=== PATIENT | female | born 1965 | race Caucasian/White ===

== ENCOUNTER 2024-03-31 14:10 | Outpatient (AMB) | payer OTHER, SELFPAY ==
--- NOTE | 2024-03-31 14:21 | MHC.PC.OV ---
Vital Signs 03/31/24 14:35 Height 5 ft 4.72 in Weight 193 lb 4 oz BMI 32.4 BP 116/74 Blood Pressure Location Lt brachial Position Sitting Respiration 14 Pulse 72 Pulse Source Pulse Oximeter Temp 98.1 F Temp Source Oral Pulse Oximetry (%) 97 Oxygen Delivery Method Room Air Intake Visit Reasons: Transfer Care from [facility] Intake Note: New patient visit. Tried taking lisinopril but it made her cough. [facility] sent her Amlodipine 5 mg pt only took half a pill out of caution. Toll Gate Keeper Required: No Allergies lisinopril Allergy (Intermediate, Verified 03/31/24 14:30) Cough Medication List - Last Reconciled 03/31/24 by Natalie Garay PA-C atorvastatin 40 mg PO DAILY chlorthalidone 25 mg PO DAILY Tobacco use date assessed: 03/31/24 Dental Screening Dental Screen Date: 03/31/24 Did you have a dental visit in the last 12 months?: Yes Did you have a dental problem in the last 6 months where you did not have access to dental care?: No Was dental information given to patient?: Patient has dentist HPI Transfer Care from [facility] HPI Details Patient is a 58-year-old female who presents today to [facility]. She is transferring from [facility]. She last saw Dr. Rodriguez on 07/30/2023. She has a history of hypertension, hyperlipidemia and tobacco use. CV: Blood pressure today in the office is 116/74. She is on chlorthalidone 25 mg and amlodipine 2.5 mg. She is on atorvastatin 40 mg for her cholesterol. -lisinopril caused a cough Mammogram: UTD in 2023, scheduled for 09/03/24 Pap: UTD, normal in 2021 Colonoscopy: Due this year former smoker- quit when 19 yeras ago Follows with [facility] for skin check [facility] Medical History (Updated 03/31/24 @ 15:00 by Natalie Garay PA-C) Tobacco dependency Obesity, Class I, BMI 30-34.9 HTN (hypertension) Hyperlipidemia Surgical History (Updated 03/31/24 @ 14:23 by Cherie Ozuna CMA) Hx of tonsillectomy History of surgical removal of pilonidal cyst H/O colonoscopy Family History (Updated 03/31/24 @ 14:24 by Cherie Ozuna CMA) Mother HTN (hypertension) Lung cancer Vertigo Father Heart attack Maternal Grandmother Breast cancer Social History (Updated 03/31/24 @ 14:34 by Cherie Ozuna CMA) Housing: House (2 Family home) Patient Tobacco Use Status: Former Tobacco user Cigarette Packs Per Day: 1.5 Years Smoked: 30 Packs Per Year: 45 e-Cigarette/Vaping Use: Never Used Second Hand Smoke Exposure: Yes (past) Use of substances other than those prescribed or required for medical reasons: Yes Substance Use Type: Marijuana service: Yes Current occupational status: employed Current occupation: advanced manager Current occupational exposures/hazards: No Cognitive needs: No Hearing needs: No Vision needs: Yes (glasses) Questionnaire PHQ-9 Over the last 2 weeks, how often have you been bothered by any of the following problems? 1. Little interest or pleasure in doing things: not at all 2. Feeling down, depressed, or hopeless: not at all 3. Trouble falling or staying asleep, or sleeping too much: several days 4. Feeling tired or having little energy: not at all 5. Poor appetite or overeating: not at all 6. Feeling bad about yourself - or that you are a failure or have let yourself or your family down: not at all 7. Trouble concentrating on things, such as reading the newspaper or watching television: not at all 8. Moving or speaking so slowly that other people could have noticed. Or the opposite - being so fidgety or restless that you have been moving around a lot more than usual: not at all 9. Thoughts that you would be better off or of hurting yourself in some way: not at all Total score: 1 Depression Screening Interpretation: Negative Depression Screening Done: Yes 97021 - PHQ-9 Billing: Yes Source: Developed by Drs. Stephen Russo, Josefina Danielle, Jeison Nicole and colleagues, with an educational yohana from [employer]. Thrive Questionnaire Date Thrive assessed: 03/31/24 I am a: Patient What is your living situation today?: I have a steady place to live Within the past 12 months, did the food you bought not last and you didn't have the money to get more?: Never true Within the past 12 months, did you worry whether your food would run out before you got money to buy more?: Never true Do you have trouble paying for medicines?: No Do you have trouble getting transportation to medical appointments?: No Do you have trouble paying your heating and electricity bill?: No Do you have trouble taking care of your child, family member or friend?: No Do you have trouble with day-to-day activities such as bathing, preparing meals, shopping, managing finances, etc.?: No Are you currently unemployed and looking for a job?: No Are you interested in more education?: No Please select the resources that you would like help with: None Currently or been in a relationship where the following occur: No concerns reported THRIVE Score: 0 AUDIT C Alcohol Use Questionnaire (AUDIT-C) 1. How often do you have a drink containing alcohol?: 4 or more times a week 2. How many drinks containing alcohol do you have on a typical day when you are drinking?: 1 or 2 3. How often do you have six or more drinks on one occasion?: Monthly Total Score: 6 Score Reviewed/Action Taken: Yes XANDER-7 AMB Questionnaire XANDER-7 Date XANDER - 7 assessed: 03/31/24 Feeling nervous, anxious, or on edge: 0 = Not at all Not being able to stop or control worryin = Not at all Worrying too much about different things: 0 = Not at all Trouble relaxin = Not at all Being so restless that it is hard to sit still: 0 = Not at all Becoming easily annoyed or irritable: 0 = Not at all Feeling afraid as if something awful might happen: 0 = Not at all Total XANDER-7 score (0-4 normal; 5-9 mild; 10-14 moderate; 15-21 severe): 0 Source: Developed by Drs. Stephen Russo, Josefina Danielle, Jeison Nicole and colleagues, with an educational yohana from [employer]. XANDER-7 Assessment Billing XANDER-7 Assessment Tool: XANDER-7 Assessment 07771 Physical exam (Primary Care) Vital Signs: Last Vital Signs Temp 98.1 F 03/31/24 14:35 Pulse 72 03/31/24 14:35 Resp 14 03/31/24 14:35 BP 116/74 03/31/24 14:35 Pulse Ox 97 03/31/24 14:35 Oxygen Delivery Method Room Air 03/31/24 14:35 BMI result Body Mass Index 32.4 Tobacco/Smoking Status: Tobacco use Status Tobacco use date assessed 03/31/24 03/31/24 14:39 Patient Tobacco Use Status Former Tobacco user 03/31/24 14:39 e-Cigarette/Vaping Use Never Used 03/31/24 14:39 PHQ-9: PHQ-9 Score PHQ-9: Total score 1 03/31/24 14:52 Depression Screening Interpretation: Negative Thrive Assessment: Date of Thrive Assessment Date Thrive assessed 03/31/24 03/31/24 14:42 Currently or been in a relationship where the following occur: No concerns reported Const Orientation/consciousness: patient oriented x3 HENMT Ears: hearing grossly normal bilaterally Neck Thyroid: Thyroid normal Lymphatic: no lymphadenopathy noted Resp Auscultation: clear to auscultation bilaterally Cardio Rate: regular rate Rhythm: regular rhythm Heart sounds: S1 normal heart sound present and S2 normal heart sound present GI Inspection: Yes normal to inspection Palpation (GI): Soft to palpation and Other GI palpation findings present (nontender, no cva tenderness) Auscultation: normoactive bowel sounds Rectal Exam - Female: deferred Skin General skin exam: no rashes or lesions noted Neuro General: patient oriented x3, gait normal and no focal motor deficits Assessment and Plan Assessment & Plan (1) Hyperlipidemia: Code(s): E78.5 - Hyperlipidemia, unspecified Qualifiers: Hyperlipidemia type: mixed hyperlipidemia Qualified Code(s): E78.2 - Mixed hyperlipidemia Plan: will check lfts and lipids. refilled lipitor (2) HTN (hypertension): Code(s): I10 - Essential (primary) hypertension Qualifiers: Hypertension type: primary hypertension Qualified Code(s): I10 - Essential (primary) hypertension Plan: bp wnl today continue current regimen. Labs ordered. Medications refilled Plan Bone density ordered. Colonoscopy referral placed. Orders: Orders Complete Blood Count Auto Diff Today E78.5 - Hyperlipidemia, unspecified, I10 - Essential (primary) hypertension Lipid Panel Today E78.5 - Hyperlipidemia, unspecified, I10 - Essential (primary) hypertension TSH reflex Free T4 Today E78.5 - Hyperlipidemia, unspecified, I10 - Essential (primary) hypertension XR DEXA axial skeleton Today Z78.0 - Asymptomatic menopausal state Comprehensive [place]. Panel Fast Today E78.5 - Hyperlipidemia, unspecified, I10 - Essential (primary) hypertension Referrals Open Access Screening Colonoscopy Referral Z12.11 - Encounter for screening for malignant neoplasm of colon, Z12.12 - Encounter for screening for malignant neoplasm of rectum Medications: New amlodipine 2.5 mg PO DAILY 30 tabs 11RF atorvastatin 40 mg PO DAILY 30 tabs 11RF Refilled chlorthalidone 25 mg PO DAILY 30 tabs 11RF Coding Level of Care Code New Pt Level 3 (60348) Complex EM visit Add On G2211 Diagnoses Mixed hyperlipidemia E78.2 Hyperlipidemia type: mixed hyperlipidemia Primary hypertension I10 Hypertension type: primary hypertension Additional Codes XANDER-7 Assessment Billing - XANDER-7 Assessment Tool: XANDER-7 Assessment 44827 ([id number])
[2024-03-31 14:35] VITALS: BP 116/74; PULSE 72; RESP 14; TEMP 36.7; O2SAT 97; BMI 32.4
== END 2024-03-31 15:04 | disposition home or self-care (01) ==
PROVIDERS: PCP Internal Medicine; Visit Provider Physician Assistant
DX: E78.2 Mixed hyperlipidemia (principal); I10 Essential (primary) hypertension
CPT/HCPCS: 99203

== ENCOUNTER 2024-05-05 12:29 | Outpatient (REF) | payer OTHER, SELFPAY ==
--- NOTE | ~2024-05-05 | MM_ITS ---
EXAMINATION: BONE DENSITOMETRY CLINICAL INDICATION: Menopause. COMPARISON: This is the patient's baseline examination. TECHNIQUE: Using a Readz DXA System (software version: 13.1) manufactured by [employer], dual-energy x-ray absorptiometry was performed of the lumbar spine and left hip. The images are of good technical quality. Summary results are attached. FINDINGS: LEFT FEMUR, NECK: BMD 0.933 g/cm2, Z-score 0.1, T-score -0.8, normal. LEFT FEMUR, TOTAL: BMD 1.017 g/cm2, Z-score 0.5, T-score 0.1, normal. AP SPINE L1-L4: BMD 0.996 g/cm2, Z-score 0.9, T-score -1.4, osteopenia. IDENTIFIED RISK FACTORS: Menopause. HISTORY OF FRACTURE: None listed. MEDICATIONS: Vitamin D. MM/XR DEXA axial skeleton IMPRESSION: 1. DIAGNOSIS: Osteopenia based on the lowest T-score value of -1.4 in the lumbar spine applying World Health Organization criteria. 2. 10-YEAR FRACTURE RISK PREDICTION, FRAX: Major osteoporotic fracture (clinical spine, forearm, hip or shoulder) 6.4%. Hip fracture 0.3%. 3. Treatment Recommendations: NOF guidelines recommend consideration for treatment in postmenopausal women and men age 50 and older presenting with the following: -A hip or vertebral (clinical or morphometric) fracture. -T-score less than or equal to -2.5 at the femoral neck or spine after appropriate evaluation to exclude secondary causes. -Low bone mass at the hip or spine and a 10-year fracture probability by FRAX of greater than or equal to 3% for hip fracture or greater than or equal to 20% for major osteoporotic fracture based on the [place] adapted WHO algorithm. 4. Other Recommendations: All treatment decisions require clinical judgment and consideration of individual patient factors, including patient preferences, comorbidities, previous drug use, risk factors not captured in the FRAX model (e.g. frailty, falls, vitamin D deficiency, increased bone turnover, interval significant decline in bone density) and possible under or overestimation of fracture risk by FRAX. Additional medical evaluation for secondary cause of low bone mineral density may be appropriate. FUTURE SCAN RECOMMENDATION: People with diagnosed cases of osteoporosis or at high risk for fracture should have regular bone mineral density tests. For patients eligible for Medicare, routine testing is allowed once every 2 years. The testing frequency can be increased to one year for patients who have rapidly progressing disease, those who are receiving or discontinuing medical therapy to restore bone mass, or have additional risk factors. Electronically signed by: Gregoria Mccullough MD 05/18/2024 08:34 AM EDT
== END 2024-05-05 12:30 | disposition home or self-care (01) ==
LOC: HO.MAMMO 12:29
PROVIDERS: PCP Internal Medicine; Visit Provider Internal Medicine
DX: Z13.820 Encounter for screening for osteoporosis (principal); Z78.0 Asymptomatic menopausal state
CPT/HCPCS: 77080

== ENCOUNTER → 2024-08-12 15:21 | Outpatient (AMB) | payer OTHER, SELFPAY ==
--- NOTE | 2024-08-12 15:40 | A.OFFPC_ITS ---
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 Allergies lisinopril Allergy (Intermediate, Verified 08/12/24 15:41) Cough Medication List - Last Reconciled 08/12/24 by Natalie Garay PA-C amlodipine 2.5 mg PO DAILY atorvastatin 40 mg PO DAILY chlorthalidone 25 mg PO DAILY Tobacco use date assessed: 08/12/24 Dental Screening Dental Screen Date: 03/31/24 Did you have a dental visit in the last 12 months?: No Did you have a dental problem in the last 6 months where you did not have access to dental care?: Yes Was dental information given to patient?: Patient has dentist HPI physical exam HPI Details Patient is a 58-year-old female who presents today for a physical exam. She has a history of hypertension, hyperlipidemia and tobacco use. CV: Blood pressure today in the office is 116/74. She is on chlorthalidone 25 mg and amlodipine 2.5 mg. She is on atorvastatin 40 mg for her cholesterol. -lisinopril caused a cough HEENT: Recently has been dealing with a cracked back right tooth that needs a root canal or to be extracted. She states that it is infected again. She saw her dentist at the beginning of July and was given amoxicillin which was somewhat helpful but the symptoms returned. She states it has been very hard to get in with an oral surgeon prior to the holidays. She states that she has been waiting to hear from her dentist but the office was closed for the last 2 weeks. She has an appointment scheduled with an oral surgeon on 08/18. No fevers or chills. Mammogram: UTD in 2023, scheduled for 09/03/24 Pap: UTD, normal in 2021 dexa: UTD- osteopenia 2023 Colonoscopy: Due- was referred former smoker- quit when 19 yeras ago Follows with [facility] for skin check [facility] Medical History (Updated 08/12/24 @ 16:13 by Natalie Garay, PA-C) Tobacco dependency Obesity, Class I, BMI 30-34.9 HTN (hypertension) Hyperlipidemia Surgical History (Updated 03/31/24 @ 14:23 by Cherie Ozuna CMA) Hx of tonsillectomy History of surgical removal of pilonidal cyst H/O colonoscopy Family History (Updated 03/31/24 @ 14:24 by Cherie Ozuna CMA) Mother HTN (hypertension) Lung cancer Vertigo Father Heart attack Maternal Grandmother Breast cancer Social History (Updated 03/31/24 @ 14:34 by Cherie Ozuna CMA) Housing: House (2 Family home) Alcohol intake: current Patient Tobacco Use Status: Former Tobacco user Cigarette Packs Per Day: 1.5 Years Smoked: 30 e-Cigarette/Vaping Use: Never Used Second Hand Smoke Exposure: Yes (past) Substance Use Type: Marijuana service: Yes Current occupational status: employed Current occupation: project construction assistant manager Current occupational exposures/hazards: No Cognitive needs: No Hearing needs: No Vision needs: Yes (glasses) Questionnaire PHQ-9 Over the last 2 weeks, how often have you been bothered by any of the following problems? 1. Little interest or pleasure in doing things: not at all 2. Feeling down, depressed, or hopeless: not at all 3. Trouble falling or staying asleep, or sleeping too much: not at all 4. Feeling tired or having little energy: not at all 5. Poor appetite or overeating: not at all 6. Feeling bad about yourself - or that you are a failure or have let yourself or your family down: not at all 7. Trouble concentrating on things, such as reading the newspaper or watching television: not at all 8. Moving or speaking so slowly that other people could have noticed. Or the opposite - being so fidgety or restless that you have been moving around a lot more than usual: not at all 9. Thoughts that you would be better off or of hurting yourself in some way: not at all Total score: 0 Depression Screening Interpretation: Negative Depression Screening Done: Yes 09215 - PHQ-9 Billing: Yes Source: Developed by Drs. Stephen Russo, Josefina Danielle, Jeison Nicole and colleagues, with an educational yohana from [employer]. Thrive Questionnaire Date Thrive assessed: 08/05/24 I am a: Patient What is your living situation today?: I have a steady place to live Within the past 12 months, did the food you bought not last and you didn't have the money to get more?: Never true Within the past 12 months, did you worry whether your food would run out before you got money to buy more?: Never true Do you have trouble paying for medicines?: No Do you have trouble getting transportation to medical appointments?: No Do you have trouble paying your heating and electricity bill?: No Do you have trouble taking care of your child, family member or friend?: No Do you have trouble with day-to-day activities such as bathing, preparing meals, shopping, managing finances, etc.?: No Are you currently unemployed and looking for a job?: No Are you interested in more education?: No Please select the resources that you would like help with: None Currently or been in a relationship where the following occur: No concerns reported THRIVE Score: 0 AUDIT C Alcohol Use Questionnaire (AUDIT-C) 1. How often do you have a drink containing alcohol?: 4 or more times a week 2. How many drinks containing alcohol do you have on a typical day when you are drinking?: 1 or 2 3. How often do you have six or more drinks on one occasion?: Less than monthly Total Score: 5 Score Reviewed/Action Taken: Yes XANDER-7 AMB Questionnaire XANDER-7 Date XANDER - 7 assessed: 08/12/24 Feeling nervous, anxious, or on edge: 0 = Not at all Not being able to stop or control worryin = Not at all Worrying too much about different things: 0 = Not at all Trouble relaxin = Not at all Being so restless that it is hard to sit still: 0 = Not at all Becoming easily annoyed or irritable: 0 = Not at all Feeling afraid as if something awful might happen: 0 = Not at all Total XANDER-7 score (0-4 normal; 5-9 mild; 10-14 moderate; 15-21 severe): 0 Source: Developed by Drs. Stephen Russo, Josefina Danielle, Jeison Nicole and colleagues, with an educational yohana from [employer]. XANDER-7 Assessment Billing XANDER-7 Assessment Tool: XANDER-7 Assessment 36450 Physical exam (Primary Care) Vital Signs: Last Vital Signs Pulse 81 08/12/24 15:42 BP 152/84 H 08/12/24 15:42 Pulse Ox 99 08/12/24 15:42 Oxygen Delivery Method Room Air 08/12/24 15:42 BMI result Body Mass Index 32.4 Tobacco/Smoking Status: Tobacco use Status Tobacco use date assessed 08/12/24 08/12/24 15:43 Patient Tobacco Use Status Former Tobacco user 08/12/24 15:43 e-Cigarette/Vaping Use Never Used 08/12/24 15:43 PHQ-9: PHQ-9 Score PHQ-9: Total score 0 08/12/24 15:43 Depression Screening Interpretation: Negative Thrive Assessment: Date of Thrive Assessment Date Thrive assessed 08/05/24 08/12/24 15:43 Currently or been in a relationship where the following occur: No concerns reported Const Orientation/consciousness: patient oriented x3 HENMT Ears: hearing grossly normal bilaterally and TM's normal bilaterally General nose exam: No nasal polyps present Face and sinus: Yes sinuses nontender Mouth: Normal oral and palatal mucosa present Teeth and gingiva: caries Eyes Pupils: Equal, round and reactive pupils present EOM: EOMs intact bilaterally Neck Neck: Yes full ROM and Yes no lymphadenopathy Thyroid: Thyroid normal Chest Chest palpation & inspection: normal inspection of the chest Resp Auscultation: clear to auscultation bilaterally Cardio Rate: regular rate Rhythm: regular rhythm Heart sounds: S1 normal heart sound present and S2 normal heart sound present Peripheral pulses: Peripheral pulses 2+ throughout GI Other: Soft, nontender Auscultation: normal bowel sounds Rectal Exam - Female: deferred General: Yes no CVA tenderness Back/Spine/Pelvis Other: Nontender Back: no CVA tenderness Skin General skin exam: no rashes or lesions noted Neuro General: patient oriented x3, gait normal, CN's II-XI intact bilaterally and deep tendon reflexes 2+ bilaterally Cranial nerves: Yes Equal, round and reactive pupils present Motor exam (neuro): 5/5 motor strength present throughout Sensory Exam: double simultaneous stimulation for sensation normal Coordination: [id number] test normal and Romberg test negative Extrem General: Yes normal to inspection and Yes full ROM Psych Affect: normal affect Attitude: cooperative Thought process: Normal thought process present Thought content: Normal thought content present Insight: Good insight present (Psych) Judgement: Good judgement present (Psych) Coding Level of Care Code Est Pt Prev Care 40-64y(29380) Diagnoses Routine general medical examination at a health care facility Z00.00 Primary hypertension I10 Hypertension type: primary hypertension Mixed hyperlipidemia E78.2 Hyperlipidemia type: mixed hyperlipidemia Dental infection K04.7 Additional Codes PHQ-9 - 75444 - PHQ-9 Billing: Yes ([id number]) XANDER-7 Assessment Billing - XANDER-7 Assessment Tool: XANDER-7 Assessment 55134 ([id number]) Assessment & Plan Assessment & Plan (1) Routine general medical examination at a health care facility: Code(s): Z00.00 - Encounter for general adult medical examination without abnormal findings Plan: Health maintenance reviewed. Reminded patient to complete labs. She never heard from GI since March when she had the open access colonoscopy ordered. Referral today was placed. Advised to let me know if she is not hear anything (2) HTN (hypertension): Code(s): I10 - Essential (primary) hypertension Category: Medical Qualifiers: Hypertension type: primary hypertension Qualified Code(s): I10 - Essential (primary) hypertension Plan: WNL. Continue current regimen (3) Hyperlipidemia: Code(s): E78.5 - Hyperlipidemia, unspecified Category: Medical Qualifiers: Hyperlipidemia type: mixed hyperlipidemia Qualified Code(s): E78.2 - Mixed hyperlipidemia Plan: We will check lipids and LFTs (4) Dental infection: Code(s): K04.7 - Periapical abscess without sinus Category: Medical Plan: Amoxicillin ordered for her. She has an appointment on the 8th. Advised to follow up sooner should anything worsen or change. Encouraged her to take a probiotic. Orders: Referrals Gastroenterology Referral Z12.11 - Encounter for screening for malignant neoplasm of colon Medications: New amoxicillin 875 mg PO BID 20 tabs 0RF
[2024-08-12 15:42] VITALS: BP 152/84; PULSE 81; O2SAT 99; BMI 32.4
[2024-08-12 15:51] VITALS: BP 116/82
== END ==
PROVIDERS: PCP Internal Medicine; Visit Provider Physician Assistant
DX: Z00.00 Encounter for general adult medical examination without abnormal findings (principal); I10 Essential (primary) hypertension; E78.2 Mixed hyperlipidemia; K04.7 Periapical abscess without sinus

== ENCOUNTER → 2024-08-12 15:21 | Outpatient (BNVA) | payer OTHER, SELFPAY | PROVIDERS: PCP Internal Medicine; Visit Provider Physician Assistant | DX: Z00.00 Encounter for general adult medical examination without abnormal findings (principal); I10 Essential (primary) hypertension; E78.2 Mixed hyperlipidemia; K04.7 Periapical abscess without sinus | CPT/HCPCS: 96127 ==

== ENCOUNTER 2024-08-19 08:32 | Outpatient (REF) | payer OTHER, SELFPAY ==
[2024-08-19 11:32] LABS: MANUAL DIFF FLAG NO
[2024-08-19 11:33] LABS: Basophils Percent Auto 0.7 % (0-2); Eosinophils Absolute Auto 0.2 X10*3/uL (0.0-0.4); Eosinophils Percent Auto 2.5 % (0-4); Hematocrit 38.9 % (37.0-47.0); Hemoglobin 13.6 g/dl (12.0-16.0); Imm Gran Abs Auto 0.04 X10*3/uL (0.00-0.03); Imm Gran Pct Auto 0.7 % (0.0-0.4); Lymphocytes Percent Auto 32.8 % (20-40); Mean Corpuscular Hemoglobin 32.4 pg (27.0-33.0); Mean Corpuscular Volume 92.6 fL (80.0-98.0); Mean Platelet Volume 8.8 fL (9.4-12.3); Monocytes Absolute Auto 0.5 X10*3/uL (0.1-1.2); Monocytes Percent Auto 7.5 % (2-11); Neutrophils Absolute Auto 3.4 x10*3/uL (2.0-8.3); Neutrophils Percent Auto 55.8 % (45-73); Platelet Count 296 X10*3/uL (160-400); Red Cell Distribution Width 12.8 % (11.0-16.0)
[2024-08-19 11:56] LABS: Alanine Aminotransferase 52 U/L (0-31); Albumin Level 4.5 g/dL (3.5-5.0); Anion Gap 11 (12-20); Aspartate Amino Transferase 38 U/L (5-31); Bilirubin Total 0.7 mg/dL (0.0-1.0); Blood Urea Nitrogen 11 mg/dL (9-16); Calcium 9.6 mg/dL (8.4-10.2); Carbon Dioxide 31 mmol/L (22-29); Chloride 102 mmol/L (96-108); Cholesterol 183 mg/dL (<200); Estimated Glomerular Filt Rate > 60; Glucose Fasting 98 mg/dL (60-99); HDL Cholesterol 83 mg/dL (>40); LDL Cholesterol Calculated 83 mg/dL (<100); Potassium 3.4 mmol/L (3.3-5.1); Sodium 141 mmol/L (135-145); Total Protein 7.3 g/dL (6.5-8.0); Triglycerides 88 mg/dL (<150)
[2024-08-19 12:08] LABS: TSH reflex Free T4 2.08 uIU/mL (0.32-4.0)
[2024-08-19 12:28] LABS: Alkaline Phosphatase 79 U/L (39-117)
== END 2024-08-19 08:33 | disposition home or self-care (01) ==
LOC: HO.WFDLDS 08:32
PROVIDERS: Visit Provider Physician Assistant
DX: I10 Essential (primary) hypertension (principal); E78.5 Hyperlipidemia, unspecified
CPT/HCPCS: 36415; 80053; 80061; 84443; 85025

== ENCOUNTER 2025-01-19 14:50 | Outpatient (REF) | payer OTHER, SELFPAY | END 2025-01-19 14:51 | disposition home or self-care (01) | LOC: HO.LNP 14:50 | PROVIDERS: PCP Physician Assistant; Visit Provider Physician Assistant | DX: R79.89 Other specified abnormal findings of blood chemistry (principal); E78.2 Mixed hyperlipidemia; I10 Essential (primary) hypertension ==

== ENCOUNTER 2025-01-19 14:50 | Outpatient (AMB) | payer OTHER, SELFPAY ==
--- NOTE | 2025-01-19 15:05 | MHC.PC.OV ---
Vital Signs 01/19/25 15:06 01/19/25 15:09 Height 5 ft 4.72 in BP 144/76 H 134/80 Blood Pressure Location Rt brachial Rt brachial Position Sitting Respiration 14 Pulse 64 Pulse Source Pulse Oximeter Temp 98.1 F Temp Source Oral Pulse Oximetry (%) 97 Oxygen Delivery Method Room Air Intake Visit Reasons: bp Allergies lisinopril Allergy (Intermediate, Verified 08/12/24 15:41) Cough Medication List - Last Reconciled 01/19/25 by Natalie Garay PA-C amlodipine 2.5 mg PO DAILY atorvastatin 40 mg PO DAILY chlorthalidone 25 mg PO DAILY Tobacco use date assessed: 08/12/24 Dental Screening Dental Screen Date: 03/31/24 HPI bp HPI Details Patient is a 59-year-old female who presents today for a f/u. She has a history of hypertension, hyperlipidemia and tobacco use. CV: Blood pressure today in the office is 134/80. She is on chlorthalidone 25 mg and amlodipine 2.5 mg. She is on atorvastatin 40 mg for her cholesterol. -lisinopril caused a cough GI: Last labs showed elevated LFTs. She states that she forgot to get these rechecked. The liver tests were also completed shortly after/around the time of a dental infection. Mammogram: UTD 09/04- dominick Pap: UTD, normal in 2021 dexa: UTD- osteopenia 07/2024 Colonoscopy: booked 02/18/25 former smoker- quit when 19 years ago Follows with [facility] check [facility] Medical History (Updated 08/27/24 @ 13:42 by Natalie Garay PA-C) Tobacco dependency Obesity, Class I, BMI 30-34.9 HTN (hypertension) Hyperlipidemia Surgical History Hx of tonsillectomy History of surgical removal of pilonidal cyst H/O colonoscopy Family History Mother HTN (hypertension) Lung cancer Vertigo Father Heart attack Maternal Grandmother Breast cancer Social History (Updated 01/19/25 @ 15:42 by Cherie Ozuna CMA) Housing: House (2 Family home) Alcohol intake: current Patient Tobacco Use Status: Former Tobacco user Cigarette Packs Per Day: 1.5 Years Smoked: 30 e-Cigarette/Vaping Use: Never Used Second Hand Smoke Exposure: Yes (past) Substance Use Type: Marijuana service: Yes Current occupational status: employed Current occupation: logistics program manager Current occupational exposures/hazards: No Cognitive needs: No Hearing needs: No Vision needs: Yes (glasses) Questionnaire Thrive Questionnaire Date Thrive assessed: 08/12/24 I am a: Patient What is your living situation today?: I have a steady place to live Within the past 12 months, did the food you bought not last and you didn't have the money to get more?: Never true Within the past 12 months, did you worry whether your food would run out before you got money to buy more?: Never true Do you have trouble paying for medicines?: No Do you have trouble getting transportation to medical appointments?: No Do you have trouble paying your heating and electricity bill?: No Do you have trouble taking care of your child, family member or friend?: No Do you have trouble with day-to-day activities such as bathing, preparing meals, shopping, managing finances, etc.?: No Are you currently unemployed and looking for a job?: No Are you interested in more education?: No Please select the resources that you would like help with: None Currently or been in a relationship where the following occur: No concerns reported THRIVE Score: 0 XANDER-7 AMB Questionnaire XANDER-7 Date XANDER - 7 assessed: 08/12/24 Source: Developed by Drs. Stephen Russo, Josefina Danielle, Jeison Nicole and colleagues, with an educational yohana from [employer]. Physical exam (Primary Care) Vital Signs: Last Vital Signs Temp 98.1 F 01/19/25 15:06 Pulse 64 01/19/25 15:06 Resp 14 01/19/25 15:06 BP 134/80 01/19/25 15:09 Pulse Ox 97 01/19/25 15:06 Oxygen Delivery Method Room Air 01/19/25 15:06 Tobacco/Smoking Status: Tobacco use Status Tobacco use date assessed 08/12/24 01/19/25 15:10 Patient Tobacco Use Status Former Tobacco user 01/19/25 15:10 e-Cigarette/Vaping Use Never Used 01/19/25 15:10 Thrive Assessment: Date of Thrive Assessment Date Thrive assessed 08/12/24 01/19/25 15:10 Currently or been in a relationship where the following occur: No concerns reported Const Orientation/consciousness: patient oriented x3 HENMT Ears: hearing grossly normal bilaterally Neck Thyroid: Thyroid normal Lymphatic: no lymphadenopathy noted Resp Auscultation: clear to auscultation bilaterally Cardio Rate: regular rate Rhythm: regular rhythm Heart sounds: S1 normal heart sound present and S2 normal heart sound present GI Inspection: Yes normal to inspection Palpation (GI): Soft to palpation and Other GI palpation findings present (nontender, no cva tenderness) Auscultation: normoactive bowel sounds Rectal Exam - Female: deferred Skin General skin exam: no rashes or lesions noted Neuro General: patient oriented x3, gait normal and no focal motor deficits Coding Level of Care Code Est Pt Level 4 (29488) Complex EM visit Add On G2211 Diagnoses Mixed hyperlipidemia E78.2 Hyperlipidemia type: mixed hyperlipidemia Primary hypertension I10 Hypertension type: primary hypertension Elevated LFTs R79.89 Assessment & Plan Assessment & Plan (1) Hyperlipidemia: Code(s): E78.5 - Hyperlipidemia, unspecified Category: Medical Qualifiers: Hyperlipidemia type: mixed hyperlipidemia Qualified Code(s): E78.2 - Mixed hyperlipidemia Plan: Continue atorvastatin 40 mg. (2) HTN (hypertension): Code(s): I10 - Essential (primary) hypertension Category: Medical Qualifiers: Hypertension type: primary hypertension Qualified Code(s): I10 - Essential (primary) hypertension Plan: WNL. Continue current regimen (3) Elevated LFTs: Code(s): R79.89 - Other specified abnormal findings of blood chemistry Category: Medical Plan: We will follow up pending test results. Orders: Orders Basic Metabolic Panel 01/19/25 E78.2 - Mixed hyperlipidemia, I10 - Essential (primary) hypertension, R79.89 - Other specified abnormal findings of blood chemistry TSH reflex Free T4 01/19/25 E78.2 - Mixed hyperlipidemia, I10 - Essential (primary) hypertension, R79.89 - Other specified abnormal findings of blood chemistry Complete Blood Count Auto Diff 01/19/25 E78.2 - Mixed hyperlipidemia, I10 - Essential (primary) hypertension, R79.89 - Other specified abnormal findings of blood chemistry Medications: New fluticasone propionate 50 mcg/actuation (Flonase Allergy Relief) administer into each nostril 2 sprays intranasal DAILY 16 grams 0RF
[2025-01-19 15:06] VITALS: BP 144/76; PULSE 64; RESP 14; TEMP 36.7; O2SAT 97
[2025-01-19 15:09] VITALS: BP 134/80
--- OUTSIDE RECORDS SUMMARY | 2025-01-19 17:02 | XMS_ITS | Clinical Summary ---
Author Organization [address] Address [address] [place] [phone] Phone Care Team Providers Care Mems Process Engineer Name Role Phone Maryjane Rodriguez MD Primary Care Provider [phone] Surgical History Surgery Date Site/Laterality Comments OTHER SURGICAL HISTORY 1985 PROCEDURE: [place] EXCISION PILONIDAL CYST/SINUS COMPLICATED COLONOSCOPY 10/13/2015 PROCEDURE: [...] Labor Labor/2nd/3rd Weight Sex Type Anes PTL Betty A1 A5 Name Clin Term Plan of [...] is recommended in 1 year. Mammo Location: [facility], [address] [place] [address], [facility], . -------- FINAL REPORT -------- Dictated By: Aby Johnson Dictated Date: 09/03/2024 17:32 ET Assigned Physician: Aby Johnson Reviewed and Electronically Signed By: Aby Johnson Signed Date: 09/03/2024 17:35 ET Workstation ID: [id number] Transcribed By: Self Edit Transcribed Date: 09/03/2024 [...] is recommended in 1 year. Mammo Location: [facility], [address] [place] [address], [id number], . -------- FINAL REPORT -------- Dictated By: Aby Johnson Dictated Date: 09/03/2024 17:32 ET Assigned Physician: Aby Johnson Reviewed and Electronically Signed By: Aby Johnson Signed Date: 09/03/2024 17:35 ET Workstation ID: [id number] Transcribed By: Self Edit Transcribed Date: 09/03/2024 17:32 ET Maryjane Rodriguez MD IMG BI PROCEDURES Final Result from Last 3 Months or Most Recently Relevant to Health Maintenance Insurance [facility] Care Teams Mems Process Engineer Relationship Specialty Start Date End Date Maryjane Rodriguez MD PCP - General 09/03/24
== END 2025-01-19 15:37 | disposition home or self-care (01) ==
LOC: HO.HMCFM 14:51
PROVIDERS: PCP Physician Assistant; Visit Provider Physician Assistant
DX: E78.2 Mixed hyperlipidemia (principal); I10 Essential (primary) hypertension; R79.89 Other specified abnormal findings of blood chemistry

== ENCOUNTER 2025-01-19 15:38 | Outpatient (REF) | payer OTHER, SELFPAY ==
[2025-01-19 17:47] LABS: MANUAL DIFF FLAG NO
[2025-01-19 18:30] LABS: Basophils Absolute Auto 0.1 X10*3/uL (0.0-0.2); Basophils Percent Auto 0.7 % (0-2); Eosinophils Absolute Auto 0.1 X10*3/uL (0.0-0.4); Eosinophils Percent Auto 1.5 % (0-4); Hematocrit 38.7 % (37.0-47.0); Hemoglobin 13.1 g/dl (12.0-16.0); Imm Gran Abs Auto 0.03 X10*3/uL (0.00-0.03); Imm Gran Pct Auto 0.4 % (0.0-0.4); Lymphocytes Absolute Auto 2.1 X10*3/uL (1.2-4.9); Lymphocytes Percent Auto 30.6 % (20-40); Mean Corpuscular HGB Conc 33.9 g/dl (31.0-35.0); Mean Corpuscular Hemoglobin 31.3 pg (27.0-33.0); Mean Corpuscular Volume 92.4 fL (80.0-98.0); Mean Platelet Volume 8.9 fL (9.4-12.3); Monocytes Absolute Auto 0.5 X10*3/uL (0.1-1.2); Monocytes Percent Auto 6.9 % (2-11); Neutrophils Percent Auto 59.9 % (45-73); Platelet Count 317 X10*3/uL (160-400); Red Blood Count 4.19 X10*6/uL (4.20-5.50); Red Cell Distribution Width 12.8 % (11.0-16.0); White Blood Count 6.7 X10*3/uL (4.8-10.8)
[2025-01-19 18:37] LABS: Alanine Aminotransferase 38 U/L (0-31); Albumin Level 4.7 g/dL (3.5-5.0); Alkaline Phosphatase 77 U/L (39-117); Anion Gap 9 (12-20); Aspartate Amino Transferase 33 U/L (5-31); Bilirubin Direct 0.2 mg/dL (0.0-0.5); Bilirubin Total 0.6 mg/dL (0.0-1.0); Blood Urea Nitrogen 15 mg/dL (9-16); Calcium 9.3 mg/dL (8.4-10.2); Carbon Dioxide 30 mmol/L (22-29); Chloride 104 mmol/L (96-108); Estimated Glomerular Filt Rate > 60; Glucose Random 87 mg/dL (60-115); Potassium 3.2 mmol/L (3.3-5.1); Sodium 140 mmol/L (135-145); Total Protein 7.2 g/dL (6.5-8.0)
[2025-01-19 18:55] LABS: TSH reflex Free T4 4.21 uIU/mL (0.32-4.0)
[2025-01-19 19:25] LABS: Free T4 (Free Thyroxine) 0.94 ng/dL (0.71-1.85)
== END 2025-01-19 15:39 | disposition home or self-care (01) ==
LOC: HO.WFDLDS 15:38
PROVIDERS: Visit Provider Physician Assistant
DX: R79.89 Other specified abnormal findings of blood chemistry (principal); E78.2 Mixed hyperlipidemia; I10 Essential (primary) hypertension
CPT/HCPCS: 36415; 80048; 80076; 84439; 84443; 85025

== ENCOUNTER 2025-02-18 08:21 | Day surgery (SDC) | payer OTHER, SELFPAY ==
--- OUTSIDE RECORDS SUMMARY | 2025-01-18 11:14 | XMS_ITS | Clinical Summary ---
Author Organization [address] Address [address] [place] [id number] Phone Care Team Providers Care Milk And Cream Grader Name Role Phone Maryjane Rodriguez MD Primary Care Provider [phone] Surgical History Surgery Date Site/Laterality Comments OTHER SURGICAL HISTORY 1985 PROCEDURE: [place] EXCISION PILONIDAL CYST/SINUS COMPLICATED COLONOSCOPY 10/13/2015 PROCEDURE: HISTORICAL COLONOSCOPY; COMMENT: polyps x 2, diverticulosis, hemorrhoids COLONOSCOPY 11/24/2015 PROCEDURE: HISTORICAL COLONOSCOPY; COMMENT: polyp x 1, also residual polyp removed. diverticulosis, ext hemorrhoid; f/u 3 yr COLONOSCOPY 01/01/2019 PROCEDURE: HISTORICAL COLONOSCOPY; COMMENT: No polyps. WISDOM TOOTH EXTRACTION PROCEDURE: HISTORICAL WISDOM TEETH EXTRACTION TONSILLECTOMY PROCEDURE: HISTORICAL TONSILLECTOMY Medical History Medical History Date Comments Overweight(278.02) 06/19/2006 DX:Overweight (278.02) Anxiety DX:Anxiety; COMM ENT: no meds Tobacco use disorder DX:Tobacco use disorder; COMMENT: quit 10/04/2018 Wheezing DX:Wheezing Family History Medical History Relation Name Comments Heart attack Father Breast cancer Maternal Grandmother unsure of age Hypertension Mother lung cancer Cervical cancer Neg Hx Colon cancer Neg Hx Ovarian cancer Neg Hx Uterine cancer Neg Hx Relation Name Status Comments Father (Age 67) Maternal Grandfather Maternal Grandmother Mother (Age 64) Paternal Grandfather Paternal Grandmother Social History Tobacco Use Types Packs/Day Years Used Date Smoking Tobacco: Former Cigarettes 0.3 35 0 09/25/1983 - 10/04/2018 Smokeless Tobacco: Never Alcohol Use Standard Drinks/Week Comments Yes 0 (1 standard drink = 0.6 oz pur e alcohol) Comments Unknown Sex and Gender Information Value Date Recorded Sex Assigned at Not on file Legal Sex Female 3:48 PM EST Gender Identity Not on file Sexual Orientation Not on file Obstetrics History Para Term AB IAB SAB Ectopic Multiple Livin g Live Births 1 08 11 1 Date Outcome GA Total Labor Labor/2nd/3rd Weight Sex Type Anes PTL Ebtty A1 A5 Name Clin Term Plan of Treatment Health Maintenance Due Date Last Done Comments Hepatitis B Vaccines (1 of 3 - 19+ 3-dose series) 1984 Cervical Cancer Screening: HPV 1986 Pneumococcal Vaccine: 50+ Years (1 of 1 - PCV) 2015 Zoster Vaccines (1 of 2) 2015 Cholesterol Screening (Lipid Panel) 07/20/2022 Colorectal Cancer Screening: Colonoscopy 07/20/2022 Depression Screening 07/20/2022 HIV Screening 07/20/2022 Hepatitis C Screening 07/20/2022 Social Influencers of Health Screening 07/20/2022 Hypertension/CHF/CAD Annual BMP Blood Test 07/21/2022 DTaP,Tdap,and Td Vaccines (3 - Td or Tdap) 02/02/2023 02/02/2013, 06/19/2006 COVID-19 Vaccine (3 - season) 2024 01/12/2021, 12/15/2020 Influenza Vaccine (Season Ended) 2025 06/07/2023, 06/15/2022, 07/26/2021, Additional history exists Breast Cancer Screening 09/03/2026 09/03/19, 08/27/2023, 08/22/2022, Additional history exists RSV Immunization Adult Patients (1 - 1-dose 75+ series) 2040 HIB Vaccines Aged Out No longer eligi ble based on patient's age to complete this topic HPV Vaccines Aged Out No longer eligi ble based on patient's age to complete this topic Hepatitis A Vaccines Aged Out No long er eligible based on patient's age to complete this topic IPV Vaccines Aged Out No longer eligi ble based on patient's age to complete this topic MMR Vaccines Aged Out No longer eligi ble based on patient's age to complete this topic Meningococcal ACWY Vaccine Aged Out N o longer eligible based on patient's age to complete this topic Meningococcal B Vaccine Aged Out No l onger eligible based on patient's age to complete this topic Pneumococcal Vaccine: Pediatrics (0 to 5 Years) and At-Risk Patients (6 to 64 Years) Aged Out No longer eligible based on patient's age to complete this topic RSV Immunization Patients Under 20 months Aged Out No longer eligible based on patient's age to complete this topic Varicella Vaccines Aged Out No longer eligible based on patient's age to complete this topic Procedures Procedure Name Priority Date/Time Associated Diagnosis Comments MG MAMMO DIGITAL SCREENING W MICHAEL BILAT Routine 09/03/2024 8:03 AM EST Encounter for screening mammogram for breast cancer from Last 3 Months or Most Recently Relevant to Health Maintenance Results * MG Mammo Digital Screening w Michael bilat (09/03/2024 8:03 AM EST) Anatomical Region Laterality Modality Breast Bilateral Mammography 09/03/2024 5:32 PM EST Impressions 09/03/2024 5:35 PM EST No mammographic evidence for malignancy. BI-RADS CATEGORY: 1 - NEGATIVE RECOMMENDATION: Screening bilateral mammogram is recommended in 1 year. Mammo Location: [facility], [address] [place] [address], [facility], . -------- FINAL REPORT -------- Dictated By: Aby Johnson Dictated Date: 09/03/2024 17:32 ET Assigned Physician: Aby Johnson Reviewed and Electronically Signed By: Aby Johnson Signed Date: 09/03/2024 17:35 ET Workstation ID: [id number] Transcribed By: Self Edit Transcribed Date: 09/03/2024 17:32 ET Narrative 09/03/2024 5:35 PM EST CLINICAL: 58 years old, Female, routine annual exam. COMPARISON: Prior mammograms, latest from 08/27/2023. ?? TECHNIQUE: Bilateral MLO and CC views were obtained digitally with 3-D mammogram (digital breast tomosynthesis). Computer-aided detection was utilized in evaluation of this exam (CAD). FINDINGS: There is no evidence of suspicious mass or architectural distortion. ??No worrisome calcifications are evident. ??There has been no significant change from prior exam(s). ?? BREAST DENSITY: B - There are scattered areas of fibroglandular density. Procedure Note Aby Johnson MD - 09/03/2024 CLINICAL: 58 years old, Female, routine annual exam. COMPARISON: Prior mammograms, latest from 08/27/2023. TECHNIQUE: Bilateral MLO and CC views were obtained digitally with 3-Dmammogram (digital breast tomosynthesis). Computer-aided detection wasutilized in evaluation of this exam (CAD). FINDINGS: There is no evidence of suspicious mass or architectural distortion. Noworrisome calcifications are evident. There has been no significantchange from prior exam(s). BREAST DENSITY: B - There are scattered areas of fibroglandular density. IMPRESSION: No mammographic evidence for malignancy. BI-RADS CATEGORY: 1 - NEGATIVE RECOMMENDATION: Screening bilateral mammogram is recommended in 1 year. Mammo Location: [facility], [address] [place] [address], [id number], . -------- FINAL REPORT -------- Dictated By: Aby Johnson Dictated Date: 09/03/2024 17:32 ET Assigned Physician: Aby Johnson Reviewed and Electronically Signed By: Aby Johnson Signed Date: 09/03/2024 17:35 ET Workstation ID: [id number] Transcribed By: Self Edit Transcribed Date: 09/03/2024 17:32 ET Maryjane Rodriguez MD IMG BI PROCEDURES Final Result from Last 3 Months or Most Recently Relevant to Health Maintenance Insurance [facility] Care Teams Milk And Cream Grader Relationship Specialty Start Date End Date Maryjane Rodriguez MD PCP - General 09/03/24
[2025-02-16 11:13] VITALS: BMI 32.4
--- NOTE | 2025-02-17 09:39 | P.CONAN_ITS ---
Documented by User: Peyton Taylor NP 02/17/25 09:39 HPI - Anesthesia Eval Consult details Narrative: 59yo F for Colonoscopy PMFSH Active Problems Active Problems: All Active Problems Hypothyroid (Acute) Elevated LFTs (Acute) Dental infection (Acute) Hyperlipidemia (Acute) HTN (hypertension) (Acute) Past Medical History Medical History Tobacco dependency Obesity, Class I, BMI 30-34.9 HTN (hypertension) Hyperlipidemia Family History Family History Mother HTN (hypertension) Lung cancer Vertigo Father Heart attack Maternal Grandmother Breast cancer Surgical History Surgical History Hx of tonsillectomy History of surgical removal of pilonidal cyst H/O colonoscopy Social History Social History Housing: House (2 Family home) Alcohol intake: current Patient Tobacco Use Status: Former Tobacco user Cigarette Packs Per Day: 1.5 Years Smoked: 30 e-Cigarette/Vaping Use: Never Used Second Hand Smoke Exposure: Yes (past) Use of substances other than those prescribed or required for medical reasons: No Substance Use Type: Marijuana Are you DNR?: No Advance Directives: No Advance Directives Information Provided: Yes Patient : No : No Poor oral hygiene: No service: Yes Current occupational status: employed Current occupation: business process manager Current occupational exposures/hazards: No Cognitive needs: No Hearing needs: No Vision needs: Yes (glasses) Meds Allergies Allergy/AdvReac Type Severity Reaction Status Date / Time lisinopril Allergy Intermediate Cough Verified 08/12/24 15:41 Exam Height,Weight and Vital Signs: Height 5 ft 4.72 in Weight 87.657 kg Assessment and Plan Assessment Anesthesia Assessment: Chart Reviewed Documented by User: Ovidio Kinney MD 02/18/25 10:25 [facility] Past Medical History Medical History Tobacco dependency Obesity, Class I, BMI 30-34.9 HTN (hypertension) Hyperlipidemia Functional capacity: independent ambulation Patient : No Family History Family History Mother HTN (hypertension) Lung cancer Vertigo Father Heart attack Maternal Grandmother Breast cancer Family history of problems with anesthesia: No Surgical History Surgical History Hx of tonsillectomy History of surgical removal of pilonidal cyst H/O colonoscopy History of Problems with Anesthesia: No Social History Social History Housing: House (2 Family home) Alcohol intake: current Patient Tobacco Use Status: Former Tobacco user Cigarette Packs Per Day: 1.5 Years Smoked: 30 e-Cigarette/Vaping Use: Never Used Second Hand Smoke Exposure: Yes (past) Use of substances other than those prescribed or required for medical reasons: No Substance Use Type: Marijuana Are you DNR?: No Advance Directives: No Advance Directives Information Provided: Yes Patient : No : No Poor oral hygiene: No service: Yes Current occupational status: employed Current occupation: business process manager Current occupational exposures/hazards: No Cognitive needs: No Hearing needs: No Vision needs: Yes (glasses) Meds Allergies Allergy/AdvReac Type Severity Reaction Status Date / Time lisinopril Allergy Intermediate Cough Verified 08/12/24 15:41 Exam Exam Date and Time: 02/18/2025 Airway TM Dist: >3cm Loose/Missing/Broken Teeth: No Heart: rrr Lungs: cta Assessment and Plan Final Anesthetic Review Family History of Problems with Anesthesia: No History of Problems with Anesthesia: No NPO: Yes ASA Class: II Final Preanesthetic Review: No Changes in Pt Med Stat, Meds/Allgs Chart Reviewed, Consent Obtained/Reviewed and Anes Risks/Benef Reviewed Patient Risk: Low Procedure Risk: Low Anesthetic Plan Anesthetic Plan: GA and MAC: Disposition: Standard PACU
[2025-02-18 09:01] VITALS: BMI 30.8
[2025-02-18 09:05] VITALS: BP 142/71; PULSE 66; RESP 16; TEMP 36.1; O2SAT 98
[2025-02-18] MEDS: Lactated Ringers 1,000 ML 100 ML IVCONT (09:16)
--- NOTE | 2025-02-18 09:25 | MHC.SHP ---
Pre-Procedural Eval Section A - 24 Hr Update-Section A only Date of Service: 02/18/25 The patient is an INPATIENT: No The patient has been examined within 24 hours of the surgical procedure. The History & Physical has been completed within 30 days and I have reviewed it.: No Section B - Complete if H&P > 30 days Chief Complaint: Surveillance for colon polyps Relevant Family History (Specify if Yes): No Relevant Social History: Tobacco Use (Former smoker) Present Medications: see Short Stay Collaborative assessment Medical History: Significant History (Tobacco dependency Obesity, Class I, BMI 30-34.9 HTN (hypertension) Hyperlipidemia) History of Previous Operations: Relevant previous surgery/procedure and date(s) (Hx of tonsillectomy History of surgical removal of pilonidal cyst H/O colonoscopy) Allergies: Allergies Allergy/AdvReac Type Severity Reaction Status Date / Time lisinopril Allergy Intermediate Cough Verified 08/12/24 15:41 Review of Systems Sugical H&P ROS: Negative: Constitution, Cardiovascular and Respiratory and Yes, Specify: Gastrointestinal (Intermittent constipation) Exam Surgical H&P Exam: Normal: Heart, Normal: Lungs, Normal: Extremities and Normal: Abdomen Plan Diagnosis/Plan: Change (Proceed with colonoscopy for follow-up of colon polyps) I have reviewed the history and physical and performed a pertinent physical examination on my patient. No changes have occurred unless specified. Time Spent With Patient Time: Total time managing care of this patient today ____ minutes.
--- NOTE | 2025-02-18 10:30 | HO.OPN-COLON ---
Colonoscopy Operative Note Operative Note Date of Service: 02/18/25 Narrative: COLONOSCOPY TILL CECUM WITH SNARE POLYPECTOMY Pre-op diagnosis: Surveillance for colon polyps Pt reports having 3 ccolonoscopies in the past at [facility] - last colon was 3.5 yrs ago. (per patient first colon 6 yrs ago, then 3 year fu colon, 3rd colonoscopy was performed 1 month after 2nd colon for fu of a polyp. Repeat colon was advised in 3 years) Post-op diagnosis:? Colon polyps, Diverticulosis, hemorrhoids Endoscopist:? Anaid Becerril MD Anesthesia:?MAC Consent: Indications for the procedure and potential complications of bleeding, perforation, reaction to medications and missed diagnosis were discussed with the patient and informed consent was obtained. Instrument: Olympus PCF H 190 L variable stiffness pediatric colonoscope Monitoring: Vital signs and clinical assessment, intermittent blood pressure monitoring, continuous EKG monitoring, Pulse oximetry and Carbon Dioxide monitoring were done throughout the procedure. Please see anesthesia flowsheet. Colon withdrawl time was 23 minutes. Procedure: The patient was placed in the left lateral decubitis position and pre-procedure medications were administered. After a digital rectal examination of the ano-rectum, the video colonoscope was inserted into the rectum and advanced through the colon to the cecum. The colonoscope was slowly withdrawn in a retrograde panoramic fashion and the colon mucosa was carefully examined including a retroflexed view of the rectum. Findings and interventions are described below. Procedure Difficulty: Colon was long and tortuous and there was some loop formation. Patient was placed in the supine position and LLQ pressure was applied to intubate the cecum Findings: Terminal Ileum: Not evaluated Cecum: Normal Ascending Colon: Normal Transverse Colon: Two 8 to 10 mm sessile polyps - removed with a cold snare Descending Colon: Moderate diverticulosis Sigmoid Colon: Severe diverticulosis with luminal narrowing Rectum: Normal Ano-rectum: Moderate internal hemorrhoids Colon preparation: Excellent, after some irrigation. [place] Bowel Preparation Scale Right colon; 3 Transverse colon: 3 Left colon; 3 (0 = Unprepared colon segment with mucosa not seen due to solid stool that cannot be cleared. 1 = Portion of mucosa of the colon segment seen, but other areas of the colon segment not well seen due to staining, residual stool and/or opaque liquid. 2 = Minor amount of residual staining, small fragments of stool and/or opaque liquid, but mucosa of colon segment seen well. 3 = Entire mucosa of colon segment seen well with no residual staining, small fragments of stool or opaque liquid) Impression and Post Procedure Diagnosis: Colonoscopy Findings: Two medium sized polyps were removed Moderate to severe diverticulosis seen in the left colon Moderate hemorrhoids on retroflexed exam. Plan: I will send a letter with biopsy results. Repeat Colonoscopy in 3-5 years if polyps are adenomatous and 10 year if polyps are hyperplastic. Above findings were reviewed with the patient and relevant handouts were given and the discharge area. BIOPSIES SHOWED: Colon, transverse, polypectomies: Fragments of tubular adenomata; negative for high-grade dysplasia or carcinoma Letter sent to the patient with biopsy results. Patient was placed on the colonoscopy recall list for repeat colonoscopy in 3 years.
[2025-02-18 11:17] VITALS: BP 127/72; PULSE 66; RESP 16; TEMP 36.5; O2SAT 96
[2025-02-18 11:32] VITALS: BP 140/82; PULSE 71; RESP 18; TEMP 36.3; O2SAT 100
== END 2025-02-18 11:56 | disposition home or self-care (01) ==
PROVIDERS: PCP Physician Assistant; Visit Provider Internal Medicine Gastroenterology
PROC: 0DJD8ZZ Inspection of Lower Intestinal Tract, Via Natural or Artificial Opening Endoscopic (ICD-10-PCS; CPT 45378; principal; 2025-02-18 10:10)
DX: Z12.11 Encounter for screening for malignant neoplasm of colon (principal); D12.3 Benign neoplasm of transverse colon; K56.699 Other intestinal obstruction unspecified as to partial versus complete obstruction; K56.2 Volvulus; K57.30 Diverticulosis of large intestine without perforation or abscess without bleeding; K64.8 Other hemorrhoids; Z86.0101 Personal history of adenomatous and serrated colon polyps; I10 Essential (primary) hypertension; E78.5 Hyperlipidemia, unspecified; Z87.891 Personal history of nicotine dependence; Z79.02 Long term (current) use of antithrombotics/antiplatelets; Z79.899 Other long term (current) drug therapy
CPT/HCPCS: 45385; 88305; J2003; J2704; J3010

== ENCOUNTER → 2025-02-18 08:21 | Outpatient (BNV) | payer OTHER, SELFPAY | PROVIDERS: PCP Physician Assistant; Visit Provider Internal Medicine Gastroenterology | DX: Z12.11 Encounter for screening for malignant neoplasm of colon (principal); Z86.0101 Personal history of adenomatous and serrated colon polyps; D12.3 Benign neoplasm of transverse colon; K57.90 Diverticulosis of intestine, part unspecified, without perforation or abscess without bleeding; K64.8 Other hemorrhoids | CPT/HCPCS: 45385 ==

== ENCOUNTER 2025-03-08 07:30 | Outpatient (REF) | payer OTHER, SELFPAY ==
--- OUTSIDE RECORDS SUMMARY | 2025-03-08 07:33 | XMS_ITS | Clinical Summary ---
Author Organization [employer] Address [address] [facility] [address] [place] [address] Care Team Providers Care Director Marketing Name Role Phone Unavailable Primary Care Provider Unavailabl e Allergies No known active allergies Medications amLODIPine (Norvasc) 5 MG tablet Take 1 tablet by mouth Once per day. 4 Active amoxicillin (Amoxil) 875 MG tablet Take 1 tablet by mouth 2 times daily. 5 Active atorvastatin (Lipitor) 40 MG tablet Take 1 tablet by mouth Once per day. 4 Active chlorthalidone (Hygroton) 25 MG tablet Take 1 tablet by mouth Once per day. 5 Active LORazepam (Ativan) 1 MG tablet TAKE 1 TABLET BY MOUTH 1 1/4 HOUR 75 MINUTES) BEFORE APPOINTMENT 4 Active ibuprofen 800 MG tablet Take 1 tablet by mouth every 8 (eight) hours if needed for pain. 4 Active Encounters Date Type Department Care Team Description 03/04/2025 Telephone [facility]ULT D[facility]AL [address] [place] [address] Alberto Hicks DMD implant referral from Last 3 Months Social History Tobacco Use Types Packs/Day Years Used Date Smoking Tobacco: Never Assessed Comments Unknown Sex and Gender Information Value Date Recorded Sex Assigned at Female 07/23/2024 11:33 AM EST Legal Sex Female 11:31 AM EST Gender Identity Female 07/23/2024 11:33 AM EST Sexual Orientation Straight 07/23/2024 11 :42 AM EST Last Filed Vital Signs Vital Sign Reading Time Taken Comments Blood Pressure 130/84 09/15/2024 11:08 AM EST Pulse 69 09/15/2024 11:08 AM EST Temperature - - Respiratory Rate - - Oxygen Saturation - - Inhaled Oxygen Concentration - - Weight - - Height - - Body Mass Index - - Plan of Treatment Health Maintenance Due Date Last Done Comments CT Colonography 1965 Colonoscopy 1965 Colorectal Cancer Screening 1965 Dental Oral Exam 1965 Dental Prophylaxis 1965 Dental X-Ray: Bitewings 1965 Depression Screening 1965 FIT DNA/Cologuard 1965 FIT 1965 FOBT 1965 HIV Screening 1965 SDOH Screening 1965 Sigmoidoscopy 1965 Disability Screening 1965 Alcohol/Substance Use Screening 1977 Tobacco Screening 1977 Hepatitis C Screening 1983 Hepatitis B Vaccines (1 of 3 - 19+ 3-dose series) 1984 Pap Smear 1986 Cervical Cancer Screening 1995 HPV/Cotest 1995 Pneumococcal Vaccine: 50+ Years (1 of 1 - PCV) 2015 Zoster Vaccines (1 of 2) 2015 DTaP/Tdap/Td Vaccines (2 - Td or Tdap) 02/02/2023 02/02/2013, 06/19/2006 COVID-19 Vaccine (3 - season) 2024 01/12/2021, 12/15/2020 Influenza Vaccine (#1) 2025 , 06/15/2022, 07/26/2021, Additional history exists Mammogram 09/03/2026 09/03/2024, 09/03/2024 Dental X-Ray: Full Mouth 08/19/2027 08/18/2024 RSV Patients and Patients Aged 60 years or older (1 - 1-dose 75+ series) 2040 HIB [...] patient's age to complete this topic Meningococcal Vaccine Aged Out No joselyn cristopher eligible based on patient's age to complete this topic RSV under 20 months Aged Out No longe r eligible based on patient's age to complete this topic Rotavirus Vaccines Aged Out No longer eligible based on patient's age to complete this topic Procedures Procedure Name Priority Date/Time Associated Diagnosis Comments PANORAMIC RADIOGRAPHIC IMAGE Routine 08/18/2024 3:15 PM EST from Last 3 Months or Most Recently Relevant to Health Maintenance Insurance [facility]
--- OUTSIDE RECORDS SUMMARY | 2025-03-08 07:33 | XMS_ITS | Clinical Summary ---
Author Organization [address] Address [address] [place] [phone] Phone Care Team Providers Care Life Skills Coordinator Volunteer Name Role Phone Maryjane Rodriguez MD Primary Care Provider [phone] Surgical History Surgery Date Site/Laterality Comments OTHER SURGICAL HISTORY 1985 PROCEDURE: [place] EXCISION PILONIDAL CYST/SINUS COMPLICATED COLONOSCOPY 10/13/2015 PROCEDURE: [...] Panel) 07/20/2022 Colorectal Cancer Screening: Colonoscopy 07/20/2022 HIV Screening 07/20/2022 Hepatitis C Screening 07/20/2022 Social Influencers of Health Screening 07/20/2022 Hypertension/CHF/CAD Annual BMP Blood Test 07/21/2022 DTaP,Tdap,and Td Vaccines (3 - Td or Tdap) 02/02/2023 02/02/2013, 06/19/2006 COVID-19 Vaccine ( - season) 2024 01/12/2021, 12/15/2020 Depression Screening 08/11/2024 Influenza Vaccine (#1) 2025 , 06/15/2022, 07/26/2021, Additional history exists Breast Cancer [...] is recommended in 1 year. Mammo Location: [facility], [address] [place] [address], [id number], . -------- FINAL REPORT -------- Dictated By: Aby Johnson Dictated Date: 09/03/2024 17:32 ET Assigned Physician: Aby Johnson Reviewed and Electronically Signed By: Aby oJhnson Signed Date: 09/03/2024 17:35 ET Workstation ID: [id number] Transcribed By: Self Edit Transcribed Date: 09/03/2024 [...] evidence of suspicious mass or architectural distortion. No worrisome calcifications are evident. There has been no significant change from prior exam(s). BREAST DENSITY: B - [...] is recommended in 1 year. Mammo Location: [facility], [address] [place] [address], [facility], . -------- FINAL REPORT -------- Dictated By: Aby Johnson Dictated Date: 09/03/2024 17:32 ET Assigned Physician: Aby Johnson Reviewed and Electronically Signed By: Aby Johnson Signed Date: 09/03/2024 17:35 ET Workstation ID: [id number] Transcribed By: Self Edit Transcribed Date: 09/03/2024 17:32 ET Maryjane Rodriguez MD IMG BI PROCEDURES Final Result from Last 3 Months or Most Recently Relevant to Health Maintenance Insurance [facility] Care Teams Life Skills Coordinator Volunteer Relationship Specialty Start Date End Date Maryjane Rodriguez MD PCP - General 09/03/24
[2025-03-08 11:59] LABS: Alanine Aminotransferase 28 U/L (0-31); Albumin Level 4.5 g/dL (3.5-5.0); Alkaline Phosphatase 76 U/L (39-117); Anion Gap 12 (12-20); Aspartate Amino Transferase 27 U/L (5-31); Blood Urea Nitrogen 10 mg/dL (9-16); Calcium 9.2 mg/dL (8.4-10.2); Carbon Dioxide 30 mmol/L (22-29); Chloride 104 mmol/L (96-108); Estimated Glomerular Filt Rate > 60; Gamma Glutamyl Transpeptidase 31 U/L (7-33); Potassium 3.5 mmol/L (3.3-5.1); Sodium 142 mmol/L (135-145); Total Protein 6.7 g/dL (6.5-8.0)
[2025-03-08 12:07] LABS: HBsAGNum1 0.31 S/CO (0.00-0.99); Hepatitis B Surface Antigen Negative (Negative); ~HepC Num1 0.10 S/CO (0.00-0.79); ~Hepatitis C Antibody Nonreactive (Nonreactive)
== END 2025-03-08 07:31 | disposition home or self-care (01) ==
LOC: HO.WFDLDS 07:30
PROVIDERS: Visit Provider Physician Assistant
DX: Z11.59 Encounter for screening for other viral diseases (principal); E87.6 Hypokalemia; E03.9 Hypothyroidism, unspecified; R94.5 Abnormal results of liver function studies; R79.89 Other specified abnormal findings of blood chemistry
CPT/HCPCS: 36415; 80048; 80076; 82977; 84443; 86803; 87340

== ENCOUNTER 2025-07-28 13:45 | Outpatient (AMB) | payer OTHER, SELFPAY ==
--- NOTE | 2025-07-28 13:50 | MHC.PC.OV ---
Vital Signs 07/28/25 13:52 Height 5 ft 6 in Weight 194 lb 4 oz BMI 31.3 BP 134/84 Blood Pressure Location Lt brachial Position Sitting Respiration 14 Pulse 88 Pulse Source Pulse Oximeter Temp 98.3 F Temp Source Oral Pulse Oximetry (%) 98 Oxygen Delivery Method Room Air Intake Visit Reasons: cpe Intake Note: Physical [employer]icon[employer] Processor Required: No Allergies lisinopril Allergy (Intermediate, Verified 07/28/25 13:50) Cough Medication List - Last Reconciled 07/28/25 by Natalie Garay PA-C amlodipine 2.5 mg PO DAILY atorvastatin 40 mg PO DAILY chlorthalidone 25 mg PO DAILY fluticasone propionate 50 mcg/actuation (Flonase Allergy Relief) 2 sprays intranasal DAILY levothyroxine (Synthroid) 25 mcg PO DAILY triamcinolone acetonide 0.025% 1 appl topical BID 10 days Tobacco use date assessed: 07/28/25 Dental Screening Dental Screen Date: 07/28/25 Did you have a dental visit in the last 12 months?: Yes Did you have a dental problem in the last 6 months where you did not have access to dental care?: No Was dental information given to patient?: Patient has dentist HPI cpe HPI Details Patient is a 59-year-old female who presents today for a f/u. She has a history of hypertension, hyperlipidemia and tobacco use. CV: Blood pressure today in the office is 134/82. She is on chlorthalidone 25 mg and amlodipine 2.5 mg. She is on atorvastatin 40 mg for her cholesterol. -lisinopril caused a cough Derm: rash of right breast x 3 weeks. She states that it is somewhat itchy but more concerning to her is that her right breast that is somewhat tender. She states that behind the nipple she notices some discomfort. She has tried hydrocortisone cream which does intermittently help the rash but then the rash returns. She denies any palpable masses or nipple drainage. She is up-to-date on her mammogram but it is due this next month. She says that she did go goal this in his concerned about laboratory breast cancer. Mammogram: UTD 09/04- dominick Pap: UTD, normal in 2021-scheduled September 2025 dexa: UTD- osteopenia 07/2024 Colonoscopy: 02/18/25 former smoker- quit when 19 years ago Follows with [facility] for skin check Due for flu shot PFSH Medical History Tobacco dependency Obesity, Class I, BMI 30-34.9 HTN (hypertension) Hyperlipidemia Surgical History Hx of tonsillectomy History of surgical removal of pilonidal cyst H/O colonoscopy Family History Mother HTN (hypertension) Lung cancer Vertigo Father Heart attack Maternal Grandmother Breast cancer Social History (Updated 07/28/25 @ 13:51 by Cherie Ozuna CMA) Housing: House (2 Family home) Alcohol intake: current Patient Tobacco Use Status: Former Tobacco user Cigarette Packs Per Day: 1.5 Years Smoked: 30 e-Cigarette/Vaping Use: Never Used Second Hand Smoke Exposure: Yes (past) Substance Use Type: Marijuana service: Yes Current occupational status: employed Current occupation: residential care facility manager Current occupational exposures/hazards: No Cognitive needs: No Hearing needs: No Vision needs: Yes (glasses) Questionnaire Thrive Questionnaire Date Thrive assessed: 08/12/24 I am a: Patient What is your living situation today?: I have a steady place to live Within the past 12 months, did the food you bought not last and you didn't have the money to get more?: Never true Within the past 12 months, did you worry whether your food would run out before you got money to buy more?: Never true Do you have trouble paying for medicines?: No Do you have trouble getting transportation to medical appointments?: No Do you have trouble paying your heating and electricity bill?: No Do you have trouble taking care of your child, family member or friend?: No Do you have trouble with day-to-day activities such as bathing, preparing meals, shopping, managing finances, etc.?: No Are you currently unemployed and looking for a job?: No Are you interested in more education?: No Please select the resources that you would like help with: None Currently or been in a relationship where the following occur: No concerns reported THRIVE Score: 0 AUDIT C Alcohol Use Questionnaire (AUDIT-C) 1. How often do you have a drink containing alcohol?: 4 or more times a week 2. How many drinks containing alcohol do you have on a typical day when you are drinking?: 1 or 2 3. How often do you have six or more drinks on one occasion?: Never Total Score: 4 XANDER-7 AMB Questionnaire XANDER-7 Date XANDER - 7 assessed: 08/12/24 Source: Developed by Drs. Stephen Russo, Josefina Danielle, Jeison Nicole and colleagues, with an educational yohana from [employer]. Physical exam (Primary Care) Vital Signs: Last Vital Signs Temp 98.3 F 07/28/25 13:52 Pulse 88 07/28/25 13:52 Resp 14 07/28/25 13:52 BP 134/84 07/28/25 13:52 Pulse Ox 98 07/28/25 13:52 Oxygen Delivery Method Room Air 07/28/25 13:52 BMI result Body Mass Index 31.3 Tobacco/Smoking Status: Tobacco use Status Tobacco use date assessed 07/28/25 07/28/25 13:54 Patient Tobacco Use Status Former Tobacco user 07/28/25 13:54 e-Cigarette/Vaping Use Never Used 07/28/25 13:54 Thrive Assessment: Date of Thrive Assessment Date Thrive assessed 08/12/24 07/28/25 13:54 Currently or been in a relationship where the following occur: No concerns reported Const Orientation/consciousness: patient oriented x3 HENMT Ears: hearing grossly normal bilaterally General nose exam: No nasal polyps present Face and sinus: Yes sinuses nontender Mouth: Normal oral and palatal mucosa present Eyes Pupils: Equal, round and reactive pupils present EOM: EOMs intact bilaterally Neck Neck: Yes full ROM and Yes no lymphadenopathy Thyroid: Thyroid normal Lymphatic: no lymphadenopathy noted Chest Other: The right breast is tender to palpation. No masses appreciated. The discomfort is surrounding the areola. No nipple drainage. No lymphadenopathy. Left breast WNL. Resp Auscultation: clear to auscultation bilaterally Cardio Rate: regular rate Rhythm: regular rhythm Heart sounds: S1 normal heart sound present and S2 normal heart sound present Peripheral pulses: Peripheral pulses 2+ throughout GI Other: Soft, nontender Inspection: Yes normal to inspection Palpation (GI): Soft to palpation and Other GI palpation findings present (nontender, no cva tenderness) Auscultation: normoactive bowel sounds Rectal Exam - Female: deferred General: Yes no CVA tenderness Back/Spine/Pelvis Other: Nontender Back: no CVA tenderness Skin Other: There is flaky, slightly papular blanching erythematous rash noted on the right breast inferior to the nipple and areola. Neuro General: patient oriented x3, gait normal and no focal motor deficits Cranial nerves: Yes Equal, round and reactive pupils present Motor exam (neuro): 5/5 motor strength present throughout Sensory Exam: double simultaneous stimulation for sensation normal Coordination: [id number] test normal and Romberg test negative Extrem General: Yes normal to inspection and Yes full ROM Psych Affect: normal affect Attitude: cooperative Thought process: Normal thought process present Thought content: Normal thought content present Insight: Good insight present (Psych) Judgement: Good judgement present (Psych) Results Reviewed Results Reviewed: Laboratory Tests 01/19/25 03/08/25 15:44 07:32 WBC 6.7 RBC 4.19 L Hgb 13.1 Hct 38.7 Plt Count 317 Sodium 142 Potassium 3.5 Chloride 104 Carbon Dioxide 30 H Anion Gap 12 BUN 10 Creatinine 0.63 Estimated GFR > 60 Random Glucose 84 Calcium 9.2 GGT 31 AST 27 ALT 28 Alkaline Phosphatase 76 Total Protein 6.7 Albumin 4.5 TSH 2.60 Coding Level of Care Code Est Pt Prev Care 40-64y(66951) Add On Preventative Visit Only Diagnoses Routine general medical examination at a health care facility Z00.00 Breast skin changes R23.4 Breast pain, right N64.4 Mixed hyperlipidemia E78.2 Hyperlipidemia type: mixed hyperlipidemia Primary hypertension I10 Hypertension type: primary hypertension Hypothyroid E03.9 Assessment & Plan Assessment & Plan (1) Routine general medical examination at a health care facility: Code(s): Z00.00 - Encounter for general adult medical examination without abnormal findings Plan: reviewed flu shot ordered (2) Breast skin changes: Code(s): R23.4 - Changes in skin texture Category: Medical Plan: Diagnostic mammogram and ultrasound ordered We will treat with triamcinolone cream. She will let me know if no improvement or if anything worsens or changes. (3) Breast pain, right: Code(s): N64.4 - Mastodynia Category: Medical Plan: As listed above (4) Hyperlipidemia: Code(s): E78.5 - Hyperlipidemia, unspecified Category: Medical Qualifiers: Hyperlipidemia type: mixed hyperlipidemia Qualified Code(s): E78.2 - Mixed hyperlipidemia Plan: Continue current regimen. Labs ordered (5) HTN (hypertension): Code(s): I10 - Essential (primary) hypertension Category: Medical Qualifiers: Hypertension type: primary hypertension Qualified Code(s): I10 - Essential (primary) hypertension Plan: WNL continue current regimen (6) Hypothyroid: Code(s): E03.9 - Hypothyroidism, unspecified Category: Medical Plan: We will continue to monitor Orders: Orders Complete Blood Count Auto Diff Today E03.9 - Hypothyroidism, unspecified, E78.2 - Mixed hyperlipidemia, I10 - Essential (primary) hypertension Lipid Panel Today E03.9 - Hypothyroidism, unspecified, E78.2 - Mixed hyperlipidemia, I10 - Essential (primary) hypertension TSH reflex Free T4 Today E03.9 - Hypothyroidism, unspecified, E78.2 - Mixed hyperlipidemia, I10 - Essential (primary) hypertension US breast RT limited Today N64.4 - Mastodynia, R23.4 - Changes in skin texture MM diagnostic mammo BI Today N64.4 - Mastodynia, R23.4 - Changes in skin texture [facility]. Panel Fast Today E03.9 - Hypothyroidism, unspecified, E78.2 - Mixed hyperlipidemia, I10 - Essential (primary) hypertension UA CC w/rflx Micro + Cult Today E03.9 - Hypothyroidism, unspecified, E78.2 - Mixed hyperlipidemia, I10 - Essential (primary) hypertension, R30.0 - Dysuria Microalbumin, Random (w Creat) Today E03.9 - Hypothyroidism, unspecified, E78.2 - Mixed hyperlipidemia, I10 - Essential (primary) hypertension Medications: New triamcinolone acetonide 0.025% 1 appl topical BID 15 grams 0RF 10 days
[2025-07-28 13:52] VITALS: BP 134/84; PULSE 88; RESP 14; TEMP 36.8; O2SAT 98; BMI 31.3
--- OUTSIDE RECORDS SUMMARY | 2025-07-28 17:59 | XMS_ITS | Clinical Summary ---
Author Organization [employer] [facility] Address [address] [facility] [address] [place] [address] Care Team Providers Care Gauge Maker Apprentice Name Role Phone Unavailable Primary Care Provider [...] hours if needed for pain. 4 Active Social History Tobacco Use Types Packs/Day Years [...] 02/02/2023 02/02/2013, 06/19/2006 COVID-19 Vaccine ( - 2024- season) 2025 01/12/2021, 12/15/2020 Influenza Vaccine (#1) 2025 , [...] Most Recently Relevant to Health Maintenance Insurance [facility]
--- OUTSIDE RECORDS SUMMARY | 2025-07-28 17:59 | XMS_ITS | Clinical Summary ---
Author Organization [address] Address [address] [place] [phone] Phone Care Team Providers Care Health And Physical Education Teacher Name Role Phone Maryjane Rodriguez MD Primary Care Provider [phone] Surgical History Surgery Date Site/Laterality Comments OTHER SURGICAL HISTORY 1985 PROCEDURE: CT EXCISION PILONIDAL CYST/SINUS COMPLICATED COLONOSCOPY 10/13/2015 PROCEDURE: [...] Health Maintenance Due Date Last Done Comments Colorectal Cancer Screening: Colonoscopy 1965 Hepatitis B Vaccines (1 of 3 - 19+ 3-dose series) 1984 Cervical Cancer Screening: HPV 1986 Pneumococcal Vaccine: 50+ Years (1 of 1 - PCV) 2015 Zoster Vaccines (1 of 2) 2015 Cholesterol Screening (Lipid Panel) 07/20/2022 HIV Screening 07/20/2022 Hepatitis C Screening 07/20/2022 Social Influencers of Health Screening 07/20/2022 Hypertension/CHF/CAD Annual BMP Blood Test 07/21/2022 DTaP,Tdap,and Td Vaccines (3 - Td or Tdap) 02/02/2023 02/02/2013, 06/19/2006 Depression Screening 08/11/2024 COVID-19 Vaccine ( - 2024- season) 2025 01/12/2021, 12/15/2020 Influenza Vaccine (#1) 2025 3, 06/15/2022, 07/26/2021, Additional history exists Breast Cancer Screening 09/03/2026 09/03/19 25, 08/27/2023, 08/22/2022, Additional history exists RSV Immunization [...] is recommended in 1 year. Mammo Location: [facility], [address] [place] [address], [phone], . -------- FINAL REPORT -------- Dictated By: Aby Johnson Dictated Date: 09/03/2024 17:32 ET Assigned Physician: Aby Johnson Reviewed and Electronically Signed By: Aby Johnson Signed Date: 09/03/2024 17:35 ET Workstation ID: [id number] Transcribed By: Self Edit Transcribed Date: 09/03/2024 [...] is recommended in 1 year. Mammo Location: [facility], [address] [place] [address], [id number], . -------- FINAL REPORT -------- Dictated By: Aby Johnson Dictated Date: 09/03/2024 17:32 ET Assigned Physician: Aby Johnson Reviewed and Electronically Signed By: Aby Johnson Signed Date: 09/03/2024 17:35 ET Workstation ID: [id number] Transcribed By: Self Edit Transcribed Date: 09/03/2024 17:32 ET Maryjane Rodriguez MD IMG BI PROCEDURES Final Result from Last 3 Months or Most Recently Relevant to Health Maintenance Insurance [facility] Care Teams Health And Physical Education Teacher Relationship Specialty Start Date End Date Maryjane Rodriguez MD PCP - General 09/03/24
--- OUTSIDE RECORDS SUMMARY | 2025-07-28 17:59 | XMS_ITS | Encounter Summary ---
Author Organization [employer] Address [address] [facility] [address] [place] [address] Care Team Providers Care Compressor Repairer Name Role Phone Unavailable Primary Care Provider Unavailabl e Reason for Visit * Reason Onset Date Comments implant referral 10/12/2024 Encounter Details Date Type Department Care Team (Late st Contact Info) Description 10/12/2024 Telephone [facility] [address] [place] [address] Alberto Hicks DMD [address] [place] [address] implant referral Social History Tobacco Use Types Packs/Day Years Used Date Smoking Tobacco: Never Assessed Comments Unknown Sex and Gender Information Value Date Recorded Sex Assigned at Female 07/23/2024 11:33 AM EST Legal Sex Female 11:31 AM EST Gender Identity Female 07/23/2024 11:33 AM EST Sexual Orientation Straight 07/23/2024 11 :42 AM EST documented as of this encounter Miscellaneous Notes * Telephone Encounter - Daiana Baker - 10/12/2024 11:12 AM EST Patient had referral sent in for implant. She has seen Dr. Hicks in thee past here for extraction and had referral for implant sent in. In notes no information documented about possible implant. Looking to confirm if she is a patient that would continue treatment with Dr. Hicks for treatment because she has been seen or if she must go elsewhere for implant treatment. documented in this encounter Plan of Treatment Not on file documented as of this encounter Visit Diagnoses Not on filedocumented in this encounter
--- OUTSIDE RECORDS SUMMARY | 2025-07-28 17:59 | XMS_ITS | Encounter Summary ---
Author Organization [employer] Address [address] [facility] [address] [place] [address] Care Team Providers Care Slide Developer Name Role Phone Unavailable Primary Care Provider Unavailabl e Reason for Visit * Reason Onset Date Comments implant referral 03/04/2025 Encounter Details Date Type Department Care Team (Late st Contact Info) Description 03/04/2025 Telephone [facility] [address] [place] [address] Alberto Hicks, KELI [address] [place] [address] implant referral Social History Tobacco Use Types [...] * Telephone Encounter - Daiana Baker - 03/04/2025 9:18 AM EDT Patient had extraction with DR. Hicks and also referral for implant. Appt is wait listed as such. She would like to know the status of appt. Please reach out to patient documented in this encounter Plan of Treatment Not on file documented as of this encounter Visit Diagnoses Not on filedocumented in this encounter
== END 2025-07-28 14:24 | disposition home or self-care (01) ==
LOC: HO.HMCFM 13:46
PROVIDERS: PCP Physician Assistant; Visit Provider Physician Assistant
DX: Z00.00 Encounter for general adult medical examination without abnormal findings (principal); N64.4 Mastodynia; R23.4 Changes in skin texture; I10 Essential (primary) hypertension; E78.2 Mixed hyperlipidemia; E03.9 Hypothyroidism, unspecified